=== PATIENT | male | born 1980 | race Caucasian/White ===

== ENCOUNTER 2025-03-18 06:25 | Day surgery (SDC) | payer OTHER, SELFPAY | END 2025-03-18 09:39 | disposition home or self-care (01) | LOC: GI 06:25 | PROVIDERS: ATTENDING PHYSICIAN Internal Medicine | DX: Z12.11 Encounter for screening for malignant neoplasm of colon (principal); D12.8 Benign neoplasm of rectum; K64.9 Unspecified hemorrhoids | CPT/HCPCS: 45385; 88305 ==

== ENCOUNTER 2025-05-22 12:58 | Emergency (ER) | payer OTHER, SELFPAY ==
[2025-05-22] VITALS (7 sets, daily range): BP systolic 93–123; BP diastolic 50–79; BMI 22.6
[2025-05-22 13:34] LABS: Hematocrit 41.6 % (39.0-52.0); Hemoglobin 14.1 g/dL (13.0-18.0); Mean Corp Hgb Conc. 33.9 g/dL (33.0-37.0); Mean Corpuscular Volume 90.2 fL (80.0-94.0); Nucleated Red Blood Cells % 0 % (-); Platelet Count 141 10^3/uL (130-400); Red Cell Dist. Width 11.5 % (11.5-14.5)
[2025-05-22 13:45] LABS: ALT (SGPT) 16 U/L (0-50); AST (SGOT) 24 U/L (17-59); Albumin 5.0 g/dl (3.5-5.0); Alkaline Phosphatase 34 U/L (38-126); Blood Urea Nitrogen 16 mg/dl (9-20); Calcium 9.3 mg/dl (8.4-10.2); Carbon Dioxide 31 mmol/L (22-30); Chloride 101 mmol/L (98-107); Glucose 111 mg/dl (70-99); Lipase 82 U/L (23-300); Potassium 4.9 mmol/L (3.5-5.1); Sodium 137 mmol/L (135-145); Total Protein 7.4 g/dl (6.3-8.2); eGFR > 60.00
--- NOTE | 2025-05-22 17:36 | EDRN ---
Dr. Severino in room w/ pt,.
--- NOTE | 2025-05-22 17:40 | ED.GENMED ---
History of Present Illness
General
Chief Complaint: Weakness
Source: patient and family
Time Seen by Provider: 05/22/25 17:29
History of Present Illness
History of Present Illness:
This patient is a 44-year-old male who states that he first started to feel unwell a few weeks ago when he had a gradual onset of a global headache, not sudden onset, not worst of life, but bothersome and persistent. This is not associated with
photophobia, numbness, tingling, focal weakness, neck pain. He saw his doctor and was diagnosed with sinusitis and doxycycline and a Medrol Dosepak. He felt like this actually making him feel worse. He discussed his symptoms again with his
primary care doctor today and was referred for outpatient labs and a CAT scan of his chest abdomen and pelvis. He did get those labs performed today but came to the emergency department via EMS because of continued symptoms. He describes a
'low-grade' fever for the past few days/weeks that will come and go associated with chills and sometimes sweats. He denies rash, recent travel, abdominal pain, chest pain, saw cough, rhinorrhea. About a month ago, he did have a sore throat, went
to an urgent care, and strep was ruled out. He was put on steroids. His sore throat is much improved and he is able to swallow without difficulty. He was tested for flu and mono and COVID, all of which were negative. Patient states he did have a
tick bite in January, although tick was not engorged and he was able to brush the tick off without using any instruments. At that time, he went to an urgent care and was prescribed doxycycline. He denies any other tick bites. Today, patient developed
nausea associated with 'dry heaves'. This is without coffee-ground emesis or blood. He denies associated abdominal pain.
Past History
Past History
ED Past Medical History: Other (Substance use disorder)
ED Past Surgical History: Other (Microdiscectomy L4-L5, septal deviation)
Social History
Tobacco: Smoker
Alcohol: None
Drug: Former user
Personal: Single
Living: with family
Phy Exam
Physical Exam
Physical Exam:
GENERAL: Alert , in no apparent distress
EYE: pupils equal and reactive, EOMI, no nystagmus, no photophobia
NECK: Supple, no significant adenopathy, nods yes and no easily.
ENT: o/p clr, mmm, no trismus, no drool, voice clear, no exudate, uvula midline.
CARDIAC: Regular rate and rhythm .
LUNGS: Clear breath sounds bilaterally, no acute respiratory distress, no wheezes/rales/rhonchi
ABDOMEN: Soft, without focal tenderness, no r/g, no cvat
NEUROLOGICAL: Alert and oriented, no focal neuro deficits, no meningismus
SKIN: Warm and dry, skin intact.
MUSCULOSKELETAL: No edema, well perfused.
PSYCH: Normal and appropriate interaction.
Course
Orders/Labs/Results
Orders:
Orders
05/22/25 13:12
Complete Blood Count/With Diff Urgent
Comprehensive Metabolic Panel Urgent
Lipase Urgent
05/22/25 17:39
Ondansetron Orally Disint [Zofran Odt (Orally Disintegrating)] 4 mg PO NOW STA
05/22/25 17:43
0.9% Sodium Chloride 1000 ml [Nss] 1,000 ml IV BOLUS
05/22/25 17:53
Ketorolac [Toradol] 15 mg IV NOW STA
05/22/25 18:04
COVID-19 Antigen Urgent
Source: Nasal Swab
Ehrlichia/Anaplasma by PCR [S] Urgent
Lactic Acid Q4H
Comment: CANCEL 2nd LACTIC ACID IF 1st LACTIC ACID IS LESS THAN 2
Lyme Progressive Urgent
Monotest Urgent
Blood Culture Q30M
SHA Source: Blood/Venous
Specimen Description:
Blood Parasites Urgent
SHA Source: Blood/Venous
Specimen Description:
Influenza A+B Rapid Molecular Urgent
SHA Source: Nasal Swab
Specimen Description:
05/22/25 18:25
Blood Culture Q30M
SHA Source: Blood/Venous
Specimen Description:
05/22/25 19:02
Iohexol [Omnipaque] See Protocol PO NOW STA
05/22/25 19:03
CT Abd/pel W Iv And Oral Contr Urgent
Comment:
Reason For Exam: n,v
05/22/25 22:53
Urinalysis Reflex To Culture Urgent
Date Specimen was Collected: 05/22/25
Time Specimen was Collected: 22:49
Urine Microscopic Reflex Cult Urgent
05/22/25 22:54
0.9% Sodium Chloride 1000 ml [Nss] 1,000 ml IV BOLUS
05/22/25 23:02
Acetaminophen [Tylenol] 1,000 mg PO NOW STA
05/22/25 23:14
Diphenhydramine [Benadryl] 50 mg .ROUTE .STK-MED ONE
Metoclopramide [Reglan] 10 mg .ROUTE .STK-MED ONE
05/22/25 23:15
Diphenhydramine [Benadryl] 25 mg IV NOW STA
05/22/25 23:16
Metoclopramide [Reglan] 10 mg IV NOW STA
Abnormal Lab Results
05/22/25 05/22/25
13:12 22:53
RBC 4.61 L 10^6/uL
(4.70-6.10)
MPV 12.1 H fL
(7.4-10.4)
Carbon Dioxide 31 H mmol/L
(22-30)
Glucose 111 H mg/dl
(70-99)
Total Bilirubin 2.0 H mg/dl
(0.2-1.3)
Alkaline Phosphatase 34 L U/L
(38-126)
Urine Ketones 3+ A
(Negative)
Urine Bacteria (Reflex) Few A
(Negative)
Urine Albumin (Reflex) 1+ A
(Neg - Trace)
05/22/25 13:12
05/22/25 13:12
Vital Signs
Initial and Last Documented VS:
Initial Vital Signs
Temp Pulse Resp BP Pulse Ox
98.1 F 78 18 112/75 100
05/22/25 13:01 05/22/25 13:01 05/22/25 13:01 05/22/25 13:01 05/22/25 13:01
Last Documented Vital Signs
Temp Pulse Resp BP Pulse Ox
98.2 F 68 18 106/67 98
05/22/25 18:30 05/22/25 21:08 05/22/25 18:17 05/23/25 00:00 05/23/25 00:15
*Pulse Oximetry
SaO2: 100
Oxygen Mode of Delivery: Room air
Patient hypoxic: no
*Critical Care Note
Total Time (30-74mins, 75-104mins- exclusive of procedures): Not Applicable
Update Note
Update Note:
Patient presents to the Emergency Department with _headache, low-grade fever, nausea vomiting
Number and Complexity of Problems Addressed at the Encounter
� Chronic conditions affecting care:
� Acute Exacerbation and/or Progression of Chronic Illness:
� Differential Diagnosis includes: But not limited to tickborne illness, mono, COVID, influenza, etc. etc.
Amount and/or Complexity of Data to be Reviewed and Analyzed
� I performed an independent evaluation of and my interpretation is:
EKG:
CT:Findings suggesting colitis. Clinical correlation recommended
Mild prostate hypertrophy.
Xrays:
Laboratory Studies:(some are pending ex tick borne) generally unremarkable, nonspec lft abnl.
Other:
� Review of other/old records reveals:
� Clinical information was obtained by an independent historian: Mother who is bedside
� Prescriptions/Medications Considered but not given:
� Further testing considered but not performed:
Risk of Complications and/or Morbidity or Mortality of Patient Management
� Social determinants of health affecting care:
� Discussion with other providers (PCP, Hospitalists, Consultants, etc):
� Escalation of care including admission/observation vs risk of discharge considered: 8:59 PM repeat evaluation patient bright alert sitting up in a chair, watching football, states he feels much better. CT pending. Tolerating
p.o. contrast.
[address] reports colitis, 'clinical correlation recommended', pt does not have abd pain, diarrhea, etc to suggest colitis. Of note, his pcp did speak with me and reported pt had weight loss recently (which prompted the CT). Patient states
that he again does not feel well and is back in bed. He is not actively vomiting but is complaining of feeling nauseous and his headache has recurred. Vitals remained stable. Clinically I highly doubt meningitis, encephalitis, bacteremia. He
will need continued observation at home with close follow-up with his doctor on Sunday. I also discussed with him the possibility that results may come back before then that would prompt us to recommend return to the emergency department.
ED Attending Note
-
Portions of this chart may have been created with voice recognition software.� Occasional wrong word or��sound alike� substitutions may have occurred due to the inherent limitations of voice recognition software.
Discharge Plan
Departure
Patient Disposition: Home (Routine Discharge)
Patient with high blood pressure during this ER visit?: No
Condition: Good
Discharge Problem:
Weakness, Headache
Instructions: Generalized Weakness (DC)
Prescriptions:
No Action
cyclobenzaprine 5 mg tablet
5 mg PO TID PRN (Reason: muscle spasm) Qty: 21 0RF
Referrals:
Girma Vega I., [Family Provider, Internal Medicine] - Follow up in 2-3 days
Stand Alone Forms: Return to Work
Activity Restrictions/Additional Instructions:
YOU HAVE BLOOD TEST TODAY THAT ARE STILL PENDING. IS VERY IMPORTANT THAT YOU FOLLOW-UP WITH THESE EITHER THROUGH THE PORTAL OR WITH YOUR DOCTOR. IF YOU DEVELOP SEVERE HEADACHE, REPEATED VOMITING, BLEEDING, CHEST PAIN, SHORTNESS OF BREATH, RASH,
DIZZINESS, GET WORSE, OR OTHER WORRISOME SIGNS, PLEASE RETURN TO THE ER IMMEDIATELY!
Interventions
Interventions:
*Risk Screen - Suicide Last Done: 05/22/25 18:17
*General Assessment Last Done: 05/22/25 18:17
*Neglect/Abuse Screening Last Done: 05/22/25 18:17
*ED- Fall Risk Assessment Last Done: 05/22/25 18:17
*ED COVID-19 Vaccine History Last Done: 05/22/25 18:17
*Nursing Disposition Last Done: 05/23/25 01:01
ED- Cardiac Assessment Last Done: 05/22/25 18:19
ED- Neurological Assessment Last Done: 05/22/25 18:19
ED- Pulmonary Assessment Last Done: 05/22/25 18:19
Discharge Date and Time
Discharge Date/Time: 05/23/25 01:02
Print Language: [place]
[2025-05-22] MEDS: ZOFRAN ODT (ORALLY DISINTEGRATING) 4 MG PO (17:44)
--- NOTE | 2025-05-22 18:10 | EDRN ---
Pt has been sick for a month w/ H/A, N/V, bodyaches, chills, sweats, low grade fevers (no > 100.2), cough, congestion. Pt has seen PCP x2 and been to UC x2 and just started on medrol dosepak today. Symptoms have been extreme per pt over past week.
[2025-05-22] MEDS: NSS 1000 IV ×2 (18:12→22:55)
[2025-05-22] MEDS: TORADOL 15 MG IV (18:12)
--- NOTE | 2025-05-22 18:32 | EDRN ---
First set of blood cultures drawn at 18:00 and second set drawn at 18:20. First set of bloods could not be sent via tube and were found not taken over by PCT and were sent after second set of blood cultures.
[2025-05-22 19:15] LABS: COVID-19 Antigen Negative (Negative)
[2025-05-22] MEDS: OMNIPAQUE 50 ML PO (19:15)
[2025-05-22 23:01] LABS: Urine Character Clear (Clear)
[2025-05-22 23:07] LABS: Urine Red Blood Cell 0-2 /HPF (0-2); Urine Squamous Cell 0-2 /LPF (Few); Urine White Cell 0-2 /HPF (0-5)
[2025-05-22] MEDS: TYLENOL 1000 MG PO (23:07)
[2025-05-22] MEDS: REGLAN 10 MG IV (23:16)
[2025-05-22] MEDS: BENADRYL 25 MG IV (23:16)
[2025-05-23] VITALS: BP 106/67
[2025-05-26 14:06] LABS: Lyme Antibody Screen, EIA Negative (Negative)
== END 2025-05-23 01:02 | disposition home or self-care (01) ==
LOC: EMR 12:58
PROVIDERS: Emergency Medicine; EMERGENCY PHYSICIAN Emergency Medicine; FAMILY PHYSICIAN Internal Medicine
DX: R53.1 Weakness (principal); R51.9 Headache, unspecified; F17.200 Nicotine dependence, unspecified, uncomplicated; Z11.52 Encounter for screening for COVID-19
CPT/HCPCS: 96374; 96375; 99284; 96361; 74177; 80053; 81003; 81015; 83605; 83690; 85025; 86308; 86618; 87015; 87040; 87207; 87468; 87484; 87502; 87798; 87811; Q9967

== ENCOUNTER → 2025-05-27 11:09 | Outpatient (REF) | payer OTHER, SELFPAY ==
[2025-05-27 16:36] LABS: Hematocrit 45.3 % (39.0-52.0); Hemoglobin 15.5 g/dL (13.0-18.0); Mean Corp Hgb Conc. 34.2 g/dL (33.0-37.0); Mean Corpuscular Volume 89.5 fL (80.0-94.0); Nucleated Red Blood Cells % 0 % (-); Platelet Count 137 10^3/uL (130-400); Red Cell Dist. Width 11.3 % (11.5-14.5)
[2025-05-27 17:11] LABS: C-Reactive Protein < 5.00 mg/L (0.0-10.00)
[2025-05-28 16:01] LABS: Rheumatoid Agglutinin Less Than 10 IU (<10 IU)
== END ==
LOC: HWRAD 11:09
PROVIDERS: ATTENDING PHYSICIAN Family Medicine
DX: R51.9 Headache, unspecified (principal); R47.89 Other speech disturbances; R41.89 Other symptoms and signs involving cognitive functions and awareness
CPT/HCPCS: 36415; 70450; 85025; 86140; 86430; 86753; 86788

== ENCOUNTER → 2025-06-03 10:26 | Day surgery (SDC) | payer OTHER, SELFPAY | LOC: GI 10:26 | PROVIDERS: ATTENDING PHYSICIAN Internal Medicine | DX: K55.9 Vascular disorder of intestine, unspecified (principal); K63.89 Other specified diseases of intestine; K62.89 Other specified diseases of anus and rectum; K20.90 Esophagitis, unspecified without bleeding; K22.89 Other specified disease of esophagus; R93.3 Abnormal findings on diagnostic imaging of other parts of digestive tract; R11.2 Nausea with vomiting, unspecified; R63.4 Abnormal weight loss | CPT/HCPCS: 45331; 43239; 87328; 87329; 88305; 88342 ==